=== PATIENT | female | born 1970 | race Caucasian/White ===

== ENCOUNTER 2016-11-29 20:37 | Emergency (ER) | payer BC ==
[2016-11-29 20:42] VITALS: BP 142/87; PULSE 87; TEMP 98.8; BMI 30.4
--- NOTE | 2016-11-29 21:20 | PDOC ---
History of Present Illness - General Chief Complaint: Injury Stated Complaint: LEFT FOOT PAIN AND SWELLING S/P INJURY Time Seen by Provider: 11/29/16 21:20 - History of Present Illness Initial Comments: 11/30/16 05:23 "Patient is a 46 year old female with a significant past medical history of melanoma, hellp syndrome, spinal surgery c/b L foot drop, HTN who presents to the ED s/p L foot injury that occurred today at 7pm. Patient reports that due to her chronic foot drop, she often trips over her L foot and today, her L foot got caught underneath her and she landed awkwardly on it. She reports her first digit on her left foot bending down when she tripped forward. She did not fall to the ground, no HS. She states she has been bearing weight on the foot since then but with a lot of discomfort. She reports taking Advil x2 with minimal relief to the Left foot pain. Denies other injuries. Tetanus vaccine is UTD, pt states has been updated in the last 2 years. Denies chest pain, SOB. Denies any fever, chills. Denies headache, dizziness. Denies any other symptoms. Allergies: No allergies Social history: No smoking. No alcohol. No illicit drugs. Surgical history: Melanoma. Spinal surgery PMD: None Past History - Past Medical History Allergies/Adverse Reactions: Allergies Allergy/AdvReac Type Severity Reaction Status Date / Time No Known Allergies Allergy Verified 11/29/16 20:38 Home Medications: Ambulatory Orders Hydrochlorothiazide [Hctz -] 0 mg PO DAILY 11/29/16 Losartan Potassium [Cozaar -] 50 mg PO DAILY 11/29/16 Cancer: Yes (MELENOMA LEFT ARM) HTN: Yes Other medical history: LEFT FOOT DROP S/P BACK SURGERY - Psycho/Social/Smoking Cessation Hx Anxiety: No Suicidal Ideation: No Smoking History: Never smoked Information on smoking cessation initiated: No Hx Alcohol Use: No Drug/Substance Use Hx: No Substance Use Type: None Review of Systems - Review of Systems Comments:: 11/30/16 05:24 "GENERAL/CONSTITUTIONAL: No fever or chills. No weakness. HEAD, EYES, EARS, NOSE AND THROAT: No change in vision. No ear pain or discharge. No sore throat. GASTROINTESTINAL: No nausea, vomiting, diarrhea or constipation. GENITOURINARY: No dysuria, frequency, or change in urination. CARDIOVASCULAR: No chest pain or shortness of breath. RESPIRATORY: No cough, wheezing, or hemoptysis. MUSCULOSKELETAL: +Left foot pain. No joint or muscle swelling or pain. No neck or back pain. SKIN: No rash NEUROLOGIC: No headache, vertigo, loss of consciousness, or change in strength/ sensation. ENDOCRINE: No increased thirst. No abnormal weight change. HEMATOLOGIC/LYMPHATIC: No anemia, easy bleeding, or history of blood clots. ALLERGIC/IMMUNOLOGIC: No hives or skin allergy. " *Physical Exam - Vital Signs Last Vital Signs Temp Pulse Resp BP Pulse Ox 98.8 F 87 18 142/87 98 11/29/16 20:38 11/29/16 20:38 11/29/16 20:38 11/29/16 20:38 11/29/16 20:38 - Physical Exam Comments: 11/30/16 05:24 "GENERAL: Awake, alert, and fully oriented, in no acute distress HEAD: No signs of trauma EYES: PERRLA, EOMI, sclera anicteric, conjunctiva clear ENT: Auricles normal inspection, hearing grossly normal, nares patent, oropharynx clear without exudates. Moist mucosa NECK: Normal ROM, supple, no lymphadenopathy, JVD, or masses LUNGS: Breath sounds equal, clear to auscultation bilaterally. No wheezes, and no crackles HEART: Regular rate and rhythm, normal S1 and S2, no murmurs, rubs or gallops ABDOMEN: Soft, nontender, normoactive bowel sounds. No guarding, no rebound. No masses EXTREMITIES: L foot: +0.5cm round superficial abrasion to dorsal great toe with scraped off nail vietnamese. +edema of the first and second dorsal aspect of the metatarsal bones. Normal capillary refill. Good strength plantar flexion. Decreased dorsiflexion strength, patient states is baseline. Normal sensation, 2 + DP pulse. Remainder of extremities wnl Normal range of motion, no edema. No clubbing or cyanosis. No cords, erythema, or tenderness NEUROLOGICAL: Normal speech, cranial nerves intact, negative pronator drift, 5/ 5 strength in all 4 extremities, normal sensation to light touch in all 4 extremities, normal cerebellar exam, gait deferred, normal reflexes and tone SKIN: Warm, Dry, normal turgor, no rashes or lesions noted. " ED Treatment Course - ADDITIONAL ORDERS Additional order review: Laboratory Results 11/29/16 20:59 Urine HCG, Qual Negative Medical Decision Making - Medical Decision Making 11/30/16 05:25 46-year-old female presents with left foot injury. Exam reveals pt to be neurovascularly intact with edema to the 1st and 2nd dorsal aspect of her metatarsal bones. XR on my read with no displaced fracture. Pt placed in a hard soled shoe, given crutches for comfort and will follow up with her orthopedic doctor (she works for [employer]). I discussed the physical exam findings, ancillary test results and final diagnoses with the patient. I answered all of the patient 's questions. The patient was satisfied with the care received and felt comfortable with the discharge plan and treatment plan. The patient will call their primary care physician within 24 hours to arrange follow-up and will return to the Emergency Department with any new, persistent or worsening symptoms. *DC/Admit/Observation/Transfer Diagnosis at time of Disposition: Foot pain, left - Discharge Dispostion Disposition: HOME Condition at time of disposition: Stable Admit: No - Patient Instructions Printed Discharge Instructions: DI for Foot Pain Additional Instructions: Follow up with your orthopedic doctor on Thursday12/01/2016. Please see your primary care doctor within 1 week. Return to the emergency department immediately for any new or concerning symptoms or if your symptoms get worse. Thank you for coming to the Emergency Department today for your care. It was a pleasure to see you today. Please note that your evaluation is INCOMPLETE until you follow-up with your doctor. - Attestations Physician Attestion: 11/30/16 01:14 I, Dr. Tanmay Schwartz MD, attest that this document has been prepared under my direction and personally reviewed by me in its entirety. I further attest, that it accurately reflects all work, treatment, procedures and medical decision -making performed by me.
[2016-11-29] MEDS ORDERED: ACETAMINOPHEN 500 MG TABLET (FP) PO ONE (21:48)
[2016-11-29] MEDS ORDERED: DIPHTH,PERTUSS(ACELL),TET VAC 0.5 ML VIAL IM ONE (21:48)
[2016-11-29] MEDS ORDERED: ACETAMINOPHEN 500 MG TABLET (FP) ONE (21:51)
== END 2016-11-30 01:17 | disposition home or self-care (01) ==
LOC: FER 20:37
PROC: 3E0234Z Introduction of Serum, Toxoid and Vaccine into Muscle, Percutaneous Approach (ICD-10-PCS; principal; 2016-11-29)
DX: M79.672 Pain in left foot (principal)
CPT/HCPCS: 73630-TC-LT; 84703; 99282-25

== ENCOUNTER 2022-11-07 10:56 | Emergency (ER) | payer BC ==
[2022-11-07 11:11] VITALS: BP 137/76; PULSE 94; RESP 18; TEMP 98.5; BMI 30.4
[2022-11-07 13:03] LABS: BASO % 0.7 % (0-2.0); EOS % 0.7 % (0-4.5); HEMATOCRIT 37.8 % (32.4-45.2); HEMOGLOBIN 12.8 GM/dL (10.7-15.3); LYMPH % 22.5 % (8-40); MCH 30.7 pg (25.7-33.7); MEAN CELL VOLUME 90.4 fl (80-96); MEAN PLT VOLUME 8.7 fl (7.5-11.1); MONO % 4.3 % (3.8-10.2); NEUT % 71.8 % (42.8-82.8); PLATELET COUNT 265 10^3/uL (134-434); RBC 4.18 M/mm3 (3.60-5.2); RDW 13.8 % (11.6-15.6); WHITE BLOOD COUNT 10.9 K/mm3 (4.0-10.0)
[2022-11-07 13:26] LABS: POTASSIUM 3.8 mmol/L (3.5-5.1)
[2022-11-07 13:27] LABS: CALCIUM 9.3 mg/dL (8.5-10.1)
[2022-11-07 13:29] LABS: ALBUMIN 3.6 g/dl (3.4-5.0); BLOOD UREA NITROGEN 12.7 mg/dL (7-18)
[2022-11-07 13:32] LABS: CREATININE 0.8 mg/dL (0.55-1.3)
[2022-11-07 13:33] LABS: TOT PROT 7.8 g/dl (6.4-8.2)
[2022-11-07 13:34] LABS: BILIRUBIN,TOTAL 0.3 mg/dL (0.2-1)
[2022-11-07 13:50] LABS: HCG,QUALITATIVE URINE Negative
[2022-11-07 13:52] LABS: EPI CELLS 10 /uL (0-25.1); HYALINE CASTS 0 /uL (0-3.1); URINE APPEARANCE CLEAR; URINE BACTERIA 318 /uL (0-1359); URINE BILIRUBIN NEGATIVE (NEGATIVE); URINE COLOR YELLOW; URINE GLUCOSE (UA) 3+ (NEGATIVE); URINE KETONE TRACE (NEGATIVE); URINE LEUK ESTERASE TRACE (NEGATIVE); URINE NITRITE NEGATIVE (NEGATIVE); URINE PROTEIN NEGATIVE (NEGATIVE); URINE UROBILINOGEN 0.2 mg/dL (0.2-1.0); URINE WBC 24 /uL (0-25.8)
[2022-11-07 14:05] LABS: URINE RBC 25.8 /uL (0-23.9)
== END 2022-11-07 18:36 | disposition home or self-care (01) ==
LOC: JER 10:56
DX: R10.32 Left lower quadrant pain (principal)
CPT/HCPCS: 36415; 74177-TC; 80053; 81003; 83690; 84703; 85025; 87086; 99285-25; Q9967